=== PATIENT | female | born 1965 | race Two or more races ===

== ENCOUNTER 2024-07-26 14:11 | Emergency (ER) | payer OTHER ==
[~2024-07-26] VITALS: Ht 149.9 cm; Wt 59.9 kg
[2024-07-26] MEDS ORDERED: MICARDIS40 MG PO (14:18)
[2024-07-26] MEDS ORDERED: KETOROLAC TROMETHAMINE 60 MG VIAL IM STA (17:12)
[2024-07-26] MEDS ORDERED: DEXAMETHASONE SODIUM PHOSPHATE 4 MG/ML VIAL IM STA (17:13)
[2024-07-26] MEDS ORDERED: DEXAMETHASONE SODIUM PHOSPHATE 4 MG/ML VIAL ONE (17:27)
[2024-07-26] MEDS ORDERED: KETOROLAC TROMETHAMINE 60 MG VIAL IM ONE (17:27)
== END 2024-07-26 20:09 | disposition home or self-care (01) ==
LOC: ER 14:13
DX: M54.50 Low back pain, unspecified (principal); I10 Essential (primary) hypertension